=== PATIENT | male | born 1995 | race Caucasian/White ===

== ENCOUNTER 2019-03-12 17:10 | Emergency (ER) | payer BC ==
[~2019-03-12] VITALS: Ht 177.8 cm; Wt 82.0 kg
[2019-03-12 17:36] VITALS: BP 143/64; PULSE 83; RESP 19; Ht 177.8 cm; Wt 82.0 kg
[2019-03-12] MEDS ORDERED: IBUP-1542 PO (18:19)
--- NOTE | 2019-03-12 18:24 | ERD ---
ER Documentation Chief Complaint Chief Complaint LEFT FOOT PAIN/INJURY HPI 23-year-old male kicked somebody during martial arts 5 days ago and has pain and bruising across the left ankle and left foot. Is able to ambulate with minimal discomfort. He has restricted range of motion due to pain but no weakness or deficits. He thought it would improve by now but pain persists. ROS All systems reviewed and are negative except as per history of present illness. Medications Home Meds Active Scripts Ibuprofen* (Motrin*) 600 Mg Tab, 600 MG PO Q6, #20 TAB Prov:CE PEPPER MD 03/12/19 Allergies Allergies: Coded Allergies: No Known Allergy (Unverified , 03/12/19) PMhx/Soc History of Surgery: No Anesthesia Reaction: No Hx Neurological Disorder: No Hx Respiratory Disorders: No Hx Cardiac Disorders: No Hx Psychiatric Problems: No Hx Miscellaneous Medical Probl: No Hx Alcohol Use: No Hx Substance Use: No Hx Tobacco Use: No Smoking Status: Never smoker FmHx Family History: No diabetes, No coronary disease, No other Physical Exam Vitals Vital Signs Date Temp Pulse Resp B/P (MAP) Pulse Ox O2 O2 Flow FiO2 Time Delivery Rate 03/12/19 98.3 83 19 143/64 97 17:36 (90) Physical Exam Const: No acute distress Head: Atraumatic Eyes: Normal Conjunctiva ENT: Normal External Ears, Nose and Mouth. Neck: Full range of motion. No meningismus. Resp: Clear to auscultation bilaterally Cardio: Regular rate and rhythm, no murmurs Abd: Soft, non tender, non distended. Normal bowel sounds Skin: No petechiae or rashes Back: No midline or flank tenderness Ext: No cyanosis, or edema. Bruising and tenderness from the left lateral malleolus to the left fourth and fifth metatarsal area. There is mild bruising and swelling. He has restricted range of motion likely due to pain but no appreciable deficits. There is no warmth or erythema or lacerations. Neur: Awake and alert Psych: Normal Mood and Affect Procedures/MDM X-ray left foot 3V Interpreted by me: Bones: No fracture Joints: No dislocation Foreign body: None. Impression-normal left foot x-ray X-ray left ankle 3V Interpreted by me: Bones: No fracture Joints: No dislocation Foreign Body: None. Impression-normal left ankle x-ray. Patient presents with left ankle and left foot pain after martial arts injury 5 days ago. He has no signs of fracture, dislocation and will deficits. There is no signs of infection or ischemia. Discharged home with recommendations for ice, elevation, ibuprofen, and primary care and orthopedic follow-up for pain despite conservative treatment next week. He should return sooner for fevers, redness, new worsening symptoms. Departure Diagnosis: Primary Impression: Injury of foot Encounter type: initial encounter Laterality: left Qualified Codes: S99.922A - Unspecified injury of left foot, initial encounter Condition: Stable Patient Instructions: Sprain Foot Referrals: NO PRIMARY,CARE PHYSICIAN (PCP) JEFERSON JERRY MD Additional Instructions: No fractures identified on x-rays. Recommend ice and elevation at home. See orthopedist for persistent pain despite adequate rest and conservative treatment after a week. Recheck sooner for new or worsening symptoms-fever, redness. CE PEPPER MD Mar 12, 2019 18:24
== END 2019-03-12 18:46 | disposition home or self-care (01) ==
LOC: FTE 17:10
DX: S90.32XA Contusion of left foot, initial encounter (principal); W50.1XXA Accidental kick by another person, initial encounter; Y92.89 Other specified places as the place of occurrence of the external cause
CPT/HCPCS: 73610; 73630; Z7502